=== PATIENT | male | born 1950 | race Caucasian/White ===

== ENCOUNTER 2022-11-22 10:26 | Outpatient (CLI) | payer MEDICARE, BC | END 2022-11-22 10:27 | disposition home or self-care (01) | LOC: SCSRAD 10:26 | PROVIDERS: ATTEND Family Medicine | DX: M79.672 Pain in left foot (principal); M77.52 Other enthesopathy of left foot and ankle; M19.072 Primary osteoarthritis, left ankle and foot ==

== ENCOUNTER 2024-04-13 02:23 | Inpatient (IN) | payer MEDICARE, BC ==
[2024-04-13 02:52] VITALS: BMI 28.7
[2024-04-13] MEDS ORDERED: Ondansetron PF 4 MG/2 ML Vial IVP PRN (03:33)
[2024-04-13] MEDS ORDERED: Acetaminophen 650 MG Suppository PR PRN (03:33)
[2024-04-13] MEDS ORDERED: Ketorolac Tromethamine 30 MG (1 mL) VIAL IVP PRN (03:35)
[2024-04-13] MEDS: Sodium Chloride 0.9% 1,000 ML IV SCH (04:37)
[2024-04-13 04:47] LABS: #Basophils 0.05 10x3/uL (0.0-0.2); %Basophils 0.4 % (0.0-1.0); %Eosinophils 0.8 % (0.0-10.0); %Lymphocytes 18.9 % (21.0-51.0); %Monocytes 13.9 % (0.0-10.0); %Neutrophils 65.5 % (42.0-75.0); Hematocrit 39.3 % (42.0-52.0); Hemoglobin 13.1 g/dL (14.0-18.0); Mean Corpuscular HGB CONC 33.3 g/dL (32.0-36.0); Mean Corpuscular Hemoglobin 32.4 pg (27.0-31.0); Mean Corpuscular Volume 97.3 fL (78.0-98.0); Mean Platelet Volume 10.7 fL (7.4-10.4); Platelet Count 217 10x3/uL (130-400); RBC Distribution Width 12.4 % (11.5-14.5); Red Blood Cell (RBC) Count 4.04 mill/uL (4.70-6.10)
[2024-04-13] MEDS: Piperacillin/Tazobactam 3.375 GM in Sodium Chloride 0.9% 100 ML IVPB SCH ×3 (04:54→20:41)
[2024-04-13 04:58] LABS: Prothrombin Time 13.6 sec (12.0-14.7)
[2024-04-13 04:59] LABS: PTT 29.2 sec (22.9-36.1)
[2024-04-13 05:25] LABS: Anion Gap 12 mmol/L (10-20); BUN (Urea Nitrogen) 17 mg/dL (8.4-25.7); Calc. Creatinine Clearance 68 mL/min (70-130); Calcium 9.1 mg/dL (7.8-10.44); Carbon Dioxide 24 mmol/L (23-31); Chloride 103 mmol/L (98-107); Estimated GFR 59; Glucose 98 mg/dL (83-110); Potassium 4.2 mmol/L (3.5-5.1); Sodium 135 mmol/L (136-145)
[2024-04-13 05:32] LABS: Bacteria/HPF None Seen HPF (None Seen); Bilirubin Negative (Negative); Blood, Urine Negative (Negative); CAUTI Indications for Culture Dysuria,urgency,freq; Clarity Clear (Clear); Glucose, Urine (Dipstick) Normal (Negative); Ketone, Urine Negative (Negative); Leukocyte Negative Leu/uL (Negative); Nitrite Negative (Negative); Protein, Urine (Dipstick) Negative (Neg-Trace); RBC/HPF 0-3 HPF (0-3); Specific Gravity, Urine 1.029 (1.002-1.036); Squamous Epithelial 0-3 HPF (0-3); Urobilinogen Normal mg/dL (Less than 2); WBC/HPF 0-3 HPF (0-3); pH, Urine 5.5 (5.0-9.0)
[2024-04-13 05:34] LABS: Urine Culture Reflex No No
[2024-04-13] MEDS ORDERED: Lidocaine 1% PF 5 ML VIAL ONE (11:53)
[2024-04-13] MEDS ORDERED: Sodium Bicarbonate 2.5 MEQ/5 ML SDV ONE (11:53)
[2024-04-13] MEDS ORDERED: fentaNYL 50 mcg/mL 1 mL Vial ONE (12:00)
[2024-04-13] MEDS ORDERED: Midazolam HCl 2 mg/2 ml Vial ONE (12:00)
[2024-04-13] MEDS ORDERED: traMADol HCl 50 MG TAB PO PRN (14:12)
[2024-04-13] MEDS ORDERED: Ibuprofen 600 MG TAB PO PRN (14:12)
[2024-04-13] MEDS: Acetaminophen 500 MG TAB PO SCH (16:44)
[2024-04-13] MEDS: Enoxaparin 40 MG (0.4 mL) SYRINGE SC SCH (20:41)
[2024-04-14 06:07] LABS: #Basophils 0.04 10x3/uL (0.0-0.2); %Basophils 0.6 % (0.0-1.0); %Eosinophils 1.2 % (0.0-10.0); %Lymphocytes 23.9 % (21.0-51.0); %Monocytes 16.6 % (0.0-10.0); %Neutrophils 57.3 % (42.0-75.0); Hematocrit 36.6 % (42.0-52.0); Hemoglobin 12.3 g/dL (14.0-18.0); Mean Corpuscular HGB CONC 33.6 g/dL (32.0-36.0); Mean Corpuscular Hemoglobin 31.8 pg (27.0-31.0); Mean Corpuscular Volume 94.6 fL (78.0-98.0); Mean Platelet Volume 11.2 fL (7.4-10.4); Platelet Count 191 10x3/uL (130-400); RBC Distribution Width 12.3 % (11.5-14.5); Red Blood Cell (RBC) Count 3.87 mill/uL (4.70-6.10)
[2024-04-14 06:23] LABS: Anion Gap 10 mmol/L (10-20); BUN (Urea Nitrogen) 14 mg/dL (8.4-25.7); Calc. Creatinine Clearance 79 mL/min (70-130); Calcium 8.7 mg/dL (7.8-10.44); Carbon Dioxide 25 mmol/L (23-31); Chloride 106 mmol/L (98-107); Estimated GFR 70; Glucose 98 mg/dL (83-110); Potassium 4.2 mmol/L (3.5-5.1); Sodium 137 mmol/L (136-145)
[2024-04-14] MEDS: Polyethylene Glycol 3350 17 GM Packet PO SCH (08:37)
[2024-04-14] MEDS: Amoxicillin/Potassium Clav 875 MG TAB PO SCH (08:37)
[2024-04-14] MEDS: Meloxicam 15 MG TAB PO SCH (09:44)
[2024-04-14 12:19] VITALS: BP 125/76; TEMP 97.6
== END 2024-04-14 15:34 | disposition home or self-care (01) | DRG 372 ==
LOC: SURG B 02:23 → SURG A 02:29
PROVIDERS: ADMIT Internal Medicine; ATTEND Internal Medicine
PROC: 0W9G30Z Drainage of Peritoneal Cavity with Drainage Device, Percutaneous Approach (ICD-10-PCS; principal; 2024-04-13)
DX: K65.1 Peritoneal abscess (principal); L02.211 Cutaneous abscess of abdominal wall; M19.90 Unspecified osteoarthritis, unspecified site; E78.5 Hyperlipidemia, unspecified; N40.0 Benign prostatic hyperplasia without lower urinary tract symptoms; Z88.5 Allergy status to narcotic agent; Z79.899 Other long term (current) drug therapy; Z88.8 Allergy status to other drugs, medicaments and biological substances; Z88.7 Allergy status to serum and vaccine; Z90.49 Acquired absence of other specified parts of digestive tract; Z87.891 Personal history of nicotine dependence; Z79.1 Long term (current) use of non-steroidal anti-inflammatories (NSAID); R53.1 Weakness; Z12.5 Encounter for screening for malignant neoplasm of prostate
CPT/HCPCS: 36415; 49406; 71045; 74177; 80048; 80053; 80061; 81001; 83605; 85025; 85610; 85730; 87040; 87070; 87077; 87186; 87205; 96365; 96367; 96375; C1729; G0103; J1650; J1885; J2250; J2543; J3010; J3370; J7030; Q9967

== ENCOUNTER 2024-05-08 19:11 | Emergency (ER) | payer MEDICARE, BC ==
[~2024-05-08 19:11] MED LIST: Iopamidol-370 76% 500 ML MDV (1 ML CHARGE) ONE
[2024-05-08 20:28] LABS: #Basophils Less than 0.03 10x3/uL (0.0-0.2); %Basophils 0.2 % (0.0-1.0); %Eosinophils 0.9 % (0.0-10.0); %Lymphocytes 7.2 % (21.0-51.0); %Monocytes 10.7 % (0.0-10.0); %Neutrophils 80.6 % (42.0-75.0); Hematocrit 37.8 % (42.0-52.0); Hemoglobin 12.8 g/dL (14.0-18.0); Mean Corpuscular HGB CONC 33.9 g/dL (32.0-36.0); Mean Corpuscular Hemoglobin 32.4 pg (27.0-31.0); Mean Corpuscular Volume 95.7 fL (78.0-98.0); Mean Platelet Volume 10.8 fL (7.4-10.4); Platelet Count 174 10x3/uL (130-400); RBC Distribution Width 12.6 % (11.5-14.5); Red Blood Cell (RBC) Count 3.95 mill/uL (4.70-6.10)
[2024-05-08 20:37] LABS: ALT (SGPT) 71 U/L (8-55); AST (SGOT) 64 U/L (5-34); Alkaline Phosphatase 176 U/L (40-110); Anion Gap 10 mmol/L (10-20); BUN (Urea Nitrogen) 13 mg/dL (8.4-25.7); Bilirubin, Total 0.8 mg/dL (0.2-1.2); Calc. Creatinine Clearance 0 mL/min (70-130); Calcium 9.3 mg/dL (7.8-10.44); Carbon Dioxide 23 mmol/L (23-31); Chloride 103 mmol/L (98-107); Estimated GFR 76; Globulin 3.4 g/dL (2.4-3.5); Glucose 120 mg/dL (83-110); Lipase 14 U/L (8-78); Potassium 3.5 mmol/L (3.5-5.1); Protein, Total 6.4 g/dL (5.8-8.1); Sodium 132 mmol/L (136-145)
[2024-05-08 20:42] LABS: Troponin I Less than 0.010 ng/mL (< 0.028)
[2024-05-08 21:50] LABS: CAUTI Indications for Culture Dysuria,urgency,freq; RBC/HPF 0-3 HPF (0-3); Squamous Epithelial None Seen HPF (0-3)
[2024-05-08 22:16] LABS: Bilirubin Unable to Interpret (Negative); Blood, Urine Unable to Interpret (Negative); Glucose, Urine (Dipstick) Unable to Interpret mg/dL (Negative); Ketone, Urine Unable to Interpret mg/dL (Negative); Leukocyte Unable to Interpret (Negative); Nitrite Unable to Interpret (Negative); Protein, Urine (Dipstick) Unable to Interpret mg/dL (Neg-Trace); Urobilinogen UNABLE TO INTERPRET mg/dL (Less than 2)
[2024-05-08 22:20] LABS: pH, Urine 6.3 (5.0-9.0)
[2024-05-08 22:28] LABS: Bacteria/HPF Rare-Few HPF (None Seen); WBC/HPF 21-50 HPF (0-3)
[2024-05-08 22:29] LABS: Clarity Hazy (Clear); Urine Culture Reflex Yes Yes
[2024-05-08] MEDS ORDERED: CEFAZOLIN 1 GM VIAL ONE (22:54)
[2024-05-08] MEDS ORDERED: cefTRIAXone (ROCEPHIN) 1 GM VIAL ONE (22:55)
== END 2024-05-08 23:05 | disposition home or self-care (01) ==
LOC: ERS 19:11
DX: N39.0 Urinary tract infection, site not specified (principal)
CPT/HCPCS: 71045; 74177; 80053; 81001; 83605; 83690; 83735; 84484; 85025; 87040; 87086; 93005; J0696; 36415; 96374; J0690; Q9967